=== PATIENT | male | born 2000 | race Two or more races ===

== ENCOUNTER 2020-04-28 13:43 | Emergency (ER) | payer OTHER ==
[~2020-04-28] VITALS: Ht 177.8 cm; Wt 77.1 kg
== END 2020-04-28 16:41 | disposition home or self-care (01) ==
LOC: ER 13:43
DX: R06.83 Snoring (principal)

== ENCOUNTER 2020-05-02 09:34 | Emergency (ER) | payer OTHER ==
[~2020-05-02] VITALS: Ht 177.8 cm; Wt 79.4 kg
== END 2020-05-02 10:48 | disposition home or self-care (01) ==
LOC: ER 09:34
DX: S61.421A Laceration with foreign body of right hand, initial encounter (principal); W25.XXXA Contact with sharp glass, initial encounter; Y93.89 Activity, other specified; Y92.238 Other place in hospital as the place of occurrence of the external cause; Y99.8 Other external cause status

== ENCOUNTER → 2020-05-07 10:23 | Outpatient (CLI) | payer OTHER | END | disposition home or self-care (01) | LOC: LAB 10:23 | PROVIDERS: ATTEND General Practice | DX: R05 Cough (principal); R50.9 Fever, unspecified; R06.02 Shortness of breath; Z03.818 Encounter for observation for suspected exposure to other biological agents ruled out ==

== ENCOUNTER 2020-05-23 20:37 | Emergency (ER) | payer OTHER ==
[~2020-05-23] VITALS: Ht 177.8 cm; Wt 79.4 kg
[2020-05-23] MEDS ORDERED: KETO10TA2 PO (22:17)
== END 2020-05-23 22:46 | disposition home or self-care (01) ==
LOC: ER 20:37
DX: S92.412A Displaced fracture of proximal phalanx of left great toe, initial encounter for closed fracture (principal); W22.8XXA Striking against or struck by other objects, initial encounter; Y93.89 Activity, other specified; Y92.098 Other place in other non-institutional residence as the place of occurrence of the external cause; Y99.8 Other external cause status

== ENCOUNTER 2020-08-13 17:15 | Emergency (ER) | payer OTHER ==
[~2020-08-13] VITALS: Ht 177.8 cm; Wt 83.9 kg
[~2020-08-13 17:15] MED LIST: KETO10TA2 PO
== END 2020-08-13 21:44 | disposition home or self-care (01) ==
LOC: ER 17:15
DX: L30.8 Other specified dermatitis (principal)

== ENCOUNTER 2023-05-27 14:18 | Emergency (ER) | payer OTHER ==
[~2023-05-27] VITALS: Ht 177.8 cm; Wt 106.6 kg
[2023-05-27 17:17] LABS: URINE APPEARANCE Clear; URINE BILIRRUBIN Negative (NEGATIVE); URINE BLOOD Negative; URINE COLOR Dark Yellow; URINE GLUCOSE Negative (NEGATIVE); URINE LEUKOCYTE Negative; URINE NITRATE Negative; URINE PROTEIN Trace (NEGATIVE)
[2023-05-27 17:20] LABS: URINE BACTERIA 374.1 uL (0.0-1933); URINE EPITHELIAL CELLS 4.6 uL (0.0-38.8)
[2023-05-27 17:22] LABS: HEMATOCRIT 47.1 % (39.0-48.0); MEAN CELL VOLUME 86.1 fL (80.0-100.00); MEAN CORPUSCULAR HEMOGLOBIN 29.2 pg (27.00-32.0); MEAN CORPUSCULAR HGB CONC 33.9 g/dl (32.0-36.0); PLATELET COUNT 207 K/uL (150-450); RED BLOOD COUNT 5.46 M/uL (4.00-6.00); RED CELL DISTRIBUTION WIDTH 13.9 % (11.5-14.5)
[2023-05-27 17:30] LABS: URINE RBC 0.8 uL (0.0-20.8)
[2023-05-27 17:42] LABS: ALBUMIN 4.3 gm/dL (3.4-5.0); BILIRUBIN TOTAL 0.77 mg/dL (0.3-1.2); BILIRUBIN,CONJUGATED 0.19 mg/dL (0.0-0.2); BILIRUBIN,UNCONJUGATED 0.58 mg/dL (0.0-0.6); CALCIUM 9.4 mg/dL (8.5-10.1); CREATININE SERUM 1.01 mg/dL (0.70-1.30); GFR 90.75; POTASSIUM 3.84 mEq/L (3.5-5.1); TOTAL PROTEIN 9.1 gm/dL (6.4-8.2)
== END 2023-05-27 21:39 | disposition home or self-care (01) ==
LOC: ER 14:18
PROVIDERS: General Practice
DX: K29.70 Gastritis, unspecified, without bleeding (principal)

== ENCOUNTER → 2023-08-20 | Emergency (ER) | payer OTHER ==
[~2023-08-20] VITALS: Ht 175.3 cm; Wt 95.3 kg
[~2023-08-20] MED LIST changes: +ACETAMINOPHEN 500 MG GEL..CAP PO ONE; +DEXAMETHASONE SODIUM PHOSPHATE 4 MG/ML VIAL IM ONE
[2023-08-20 23:58] LABS: HEMATOCRIT 44.8 % (39.0-48.0); HEMOGLOBIN 15.2 g/dL (13-16.00); MEAN CELL VOLUME 85.4 fL (80.0-100.00); MEAN CORPUSCULAR HEMOGLOBIN 28.9 pg (27.00-32.0); MEAN CORPUSCULAR HGB CONC 33.9 g/dl (32.0-36.0); PLATELET COUNT 199 K/uL (150-450); RED BLOOD COUNT 5.25 M/uL (4.00-6.00)
== END | disposition left against medical advice (07) ==
LOC: ER 20:02
PROVIDERS: General Practice
DX: J06.9 Acute upper respiratory infection, unspecified (principal)